=== PATIENT | female | born 1965 | race Caucasian/White ===

== ENCOUNTER → 2020-09-30 10:33 | Outpatient (BNVA) | payer OTHER, SELFPAY | PROVIDERS: PCP Family Medicine; Referring Provider Family Medicine; Visit Provider Physician Assistant | DX: E66.3 Overweight (principal); Z68.28 Body mass index [BMI] 28.0-28.9, adult | CPT/HCPCS: 99202 ==

== ENCOUNTER 2021-07-21 16:29 | Outpatient (REF) | payer OTHER, SELFPAY | END 2021-07-21 16:30 | disposition home or self-care (01) | LOC: HO.LNP 16:29 | PROVIDERS: Visit Provider Hospitalist | DX: Z20.822 Contact with and (suspected) exposure to COVID-19 (principal); J01.90 Acute sinusitis, unspecified | CPT/HCPCS: U0003; U0005 ==

== ENCOUNTER 2022-08-11 09:07 | Outpatient (REF) | payer SELFPAY ==
[2022-08-11 10:33] LABS: Free T4 (Free Thyroxine) 1.06 ng/dL (0.71-1.85); Thyroid Stimulating Hormone 1.75 uIU/mL (0.32-4.0)
[2022-08-13 06:47] LABS: Triiodothyronine T3 Total 77 ng/dL (76-181)
== END 2022-08-11 09:08 | disposition home or self-care (01) ==
LOC: HO.LAB 09:07
PROVIDERS: PCP Family Medicine; Visit Provider Family Medicine
DX: E03.9 Hypothyroidism, unspecified (principal)
CPT/HCPCS: 36415; 84439; 84443; 84480

== ENCOUNTER 2023-07-02 10:13 | Emergency (ER) | payer BC, SELFPAY ==
--- NOTE | ~2023-07-02 | CT_ITS ---
EXAMINATION: CT HEAD WITHOUT CONTRAST CLINICAL INFORMATION: Headache, nausea and vomiting. COMPARISON: None available. TECHNIQUE: Contiguous axial imaging was performed from the skull base to vertex without intravenous administration of contrast. Coronal and sagittal reformatted images were obtained. This CT examination was performed using dose optimization techniques as appropriate, variously including the following: *Automated exposure control *Adjustment of mA and/or kV according to patient size (this includes techniques or standardized protocols for targeted exams where dose is matched to indication/reason for exam; i.e. extremities or head) *Use of iterative reconstruction technique DLP: 557 mGy-cm FINDINGS: The cortical sulci are normal. The lateral ventricles are symmetrical. The third and fourth ventricles are in their normal midline position. The basilar and prepontine cisterns are unremarkable. There is no acute intra or extracerebral abnormality. There is no mass effect or midline shift. Sections through the bony calvarium are unremarkable. The paranasal sinuses show a small retention cyst versus inflammatory polyp at the base of the left maxillary sinus. The bony orbits and orbital contents are unremarkable. CT/CT head/brain wo IV con IMPRESSION: No acute intracranial pathology.
[2023-07-02 10:25] VITALS: BP 124/74; PULSE 71; RESP 18; TEMP 36.8; O2SAT 98; BMI 29.3
--- NOTE | 2023-07-02 11:27 | ED.HA ---
HPI - Headache General Chief Complaint: Headache Stated Complaint: Vomiting L Arm Tingling X 1 Month Time Seen by Provider: 07/02/23 11:08 Source: patient, RN notes reviewed and old records reviewed Mode of arrival: ambulatory History of Present Illness HPI Narrative: 58-year-old female with past medical history hypothyroid, HLD, presenting to the ED complaining of dull headache beginning this morning at 06:30AM with associated nausea and emesis x1 a few hours later. Denies headache being maximal at onset. Also reports acute on chronic intermittent pinching sensation to left upper arm x 1 mos. Denies known injury/trauma or fall. Denies taking anticoagulation. Denies vision change/loss, neck/back pain, weakness, paresthesias, CP/SOB MD elicited complaint: migraine Related Data Home Medications Medication Instructions Recorded Confirmed flu vac qs (4 yr up) CD 60 IM 09/13/ mcg (15 mcg x 4)/0.5 mL IM susp multivitamin 1 tab PO DAILY 09/30/20 09/30/20 Previous Rx's Medication Instructions Recorded prednisone 20 mg tablet 20 mg PO .COMPLEX #18 tabs 07/21/21 mupirocin 2 % topical ointment 1 appl topical BID 14 days #22 02/14/ grams Levoxyl 100 mcg tablet 100 mcg PO DAILY 90 days #90 tabs 03/21/23 (levothyroxine) Allergies Allergy/AdvReac Type Severity Reaction Status Date / Time levothyroxine sodium Allergy Severe RASH Verified 08/16/22 13:30 [LEVOTHYROXINE SODIUM] Penicillins [PENICILLINS] Allergy Severe HIVES, Rash Verified 08/16/22 13:30 any 'cillins' Allergy Unknown Rash Uncoded 09/13/20 14:16 Review of Systems Review of Systems: Constitutional: No Fever, No Chills, No Fatigue, No Malaise ENT/Mouth: No Ear Pain, No Swallowing Difficulty Eyes: No Eye Pain, No Swelling, No Redness, No Foreign Body, No Vision Changes Cardiovascular: No Chest Pain, No SOB, No Edema, No Palpitations Respiratory: No Cough, No Sputum, No Dyspnea Gastrointestinal: No Nausea, No Vomiting, No Diarrhea, No Constipation, No Abdominal pain Musculoskeletal: + joint pain, No Myalgias, No Joint Swelling Skin: No Skin Lesions, No rash Neuro: No Weakness, No Numbness, No Paresthesias, No Loss of Consciousness, No Dizziness, + Headache Yes all other systems are reviewed and are negative Constitutional: Constitutional: Reports as per HPI Neurologic: Denies Abnormal speech present [facility] Past Medical History Attestation statement: The following information was validated with the patient. Source: old records reviewed Medical History COVID-19 Hypothyroidism (acquired) Surgical History History of dilation and curettage History of ganglion cyst Family History Family History Father Alzheimer disease Mother Alzheimer disease Brother No problems noted. Sister No problems noted. Sister Migraine Son No problems noted. Social History Social History Housing: House Alcohol intake: never Patient Tobacco Use Status: Never used Tobacco e-Cigarette/Vaping Use: Never Used Second Hand Smoke Exposure: No Advance Directives: No service: No Current occupational exposures/hazards: No Cognitive needs: No Hearing needs: No Vision needs: No Physical Exam Vital Signs: Vital Signs: Last Vital Signs Temp 98.2 F 07/02/23 10:25 Pulse 71 07/02/23 10:25 Resp 18 07/02/23 10:25 BP 124/74 07/02/23 10:25 Pulse Ox 98 07/02/23 10:25 O2 Del Method Room Air 07/02/23 10:25 BMI result Body Mass Index 29.3 Const: General: cooperative, healthy appearing, no acute distress, alert and awake Orientation/consciousness: patient oriented x3 Limitations: no limitations HEENT: Head: Yes normal to inspection and Yes atraumatic Ears: hearing grossly normal bilaterally, external ears normal, TM's normal bilaterally and mastoids normal General nose exam: Normal external nose present Face and sinus: Yes normal facial exam Throat: Yes posterior oropharynx normal, Yes tonsils normal, Yes uvula midline, No peritonsillar mass, No uvula laterally displaced and No uvular edema Eyes: General: appearance normal, both eyes and all related structures Eyelids: Yes eyelids normal Sclerae: sclerae normal Corneas: corneas normal Pupils: Equal, round and reactive pupils present EOM: EOMs intact bilaterally Neck: Neck: Yes normal visual inspection, Yes full ROM, Yes no meningeal signs, Yes supple, No anterior neck swelling and No torticollis Resp: Effort & Inspection: normal respiratory effort and no respiratory distress Auscultation: clear to auscultation bilaterally Cardio: Rate: regular rate Heart sounds: S1 normal heart sound present and S2 normal heart sound present Peripheral pulses: Peripheral pulses 2+ throughout GI: Inspection: Yes normal to inspection Palpation (GI): Soft to palpation, nontender, no guarding and not rigid Back/Spine/Pelvis: Other: No midline cervical/thoracic/lumbar spinous tenderness/step-off or deformity Skin: Rashes: no rashes Wounds: no wounds Neuro: General: patient oriented x3, gait normal, tone normal, moves all extremities, no meningeal signs, no focal motor deficits and CN's II-XI intact bilaterally Cranial nerves: Yes CN's II-XII intact bilaterally, Yes Equal, round and reactive pupils present and Yes Bilaterally intact EOM present Cognition (Neuro): normal cognition Speech: No Abnormal speech present Gait exam (Neuro): Normal gait present Motor exam (neuro): 5/5 motor strength present throughout, Pronator motor function not present and no tremor noted Extrem: Other: Left upper extremity without noted deformity, no erythema/ecchymosis or rash. No edema. Neurovascularly intact. Full range of motion intact General: Yes normal to inspection Course Course Course Narrative: CT head/brain wo IV con IMPRESSION: No acute intracranial pathology. > results discussed, patient reports symptomatic improvement/headache resolution after p.o. Fioricet, offered prescription however patient declined, recommended close orthopedic and PCP follow-up Results discussed with patient including worrisome signs and symptoms and strict return precautions, and when to return to the emergency department. They verbalized understanding and feel safe for discharge at this time. Medications Administered Discontinued Medications Generic Name Dose Route Start Last Admin Trade Name Freq PRN Reason Stop Dose Admin Acetaminophen/Butalbital/Caffeine 1 tab 07/02/23 12:03 07/02/23 12:49 Butalb/Acetamin/Caff 50/325/40 Tablet PO 07/02/23 12:04 1 tab ONCE ONE Administration Medical Decision Making Medical Decision Making MDM Narrative: 58-year-old female with past medical history hypothyroid, HLD, presenting to the ED complaining of dull headache beginning this morning at 06:30AM with associated nausea and emesis a few hours later. On exam vital signs stable, NAD, nontoxic appearing, no focal neuro deficits, ambulating with steady gait, no appreciable left upper extremity deformity noted. Concern for complicated migraine headache. Lower suspicion for SAH however patient in 6 hour window, will obtain head CT. Unlikely CVA/TIA. Rule out atypical ACS although lower suspicion with chronicity and intermittent symptoms. Unlikely cervical radiculopathy/dissection. No evidence of infection Plan: EKG, head CT, p.o. Fioricet Please refer to course for remaining clinical decision making, interpretation of labs/imaging results, and discussions with consultants and/or family members. Differential Diagnosis Differential Diagnoses: The differential diagnosis associated with the presentation includes As above Admission/Observation Consideration of admission/observation: Escalation of care including admission/observation considered Independent Interpretation I performed an independent interpretation of an: CT Scan (Appears unremarkable) Radiology Impression Discussion of test interpretation with radiology: I have reviewed the radiologist's reading. Independent Historian Clinical information obtained from an independent historian. History obtained from or confirmed by: Other (Daughter) External Record Review External record reviewed: Inpatient record, Office record, Outpatient record, Prior outpatient labs, Prior outpatient radiology, Primary care record and Outside ED record Tests considered The following testing was considered but not selected: As above Prescription Management I considered prescription management with: Pain Medication Chronic Conditions Patient?s care impacted by: Other (HLD) Discharge Plan Discharge Clinical Impression: Headache, Arm pain Patient Disposition: Home, Self-Care Instructions: Acute Headache (DC), Arm Pain (ED) Additional Instructions: Your head CT is unremarkable Continue to take Tylenol and Motrin as needed Follow-up with her doctor If headache persists or worsens, you have persistent nausea/vomiting, weakness, vision loss return to the ED immediately You may follow-up with orthopedics pertaining to her arm pain Prescriptions: No Action levothyroxine [Levoxyl] 100 mcg tablet 100 mcg PO DAILY 90 Days Qty: 90 3RF Rx Instructions: no substitute, give LEVOXYL only please Flucelvax Quad [id number] 60 mcg (15 mcg x 4)/0.5 mL suspension IM prednisone 20 mg tablet 20 mg PO .COMPLEX Qty: 18 0RF Rx Instructions: 20 mg PO 3 p.o. daily for 3 days followed by 2 p.o. daily for 3 days followed by 1 p.o. daily for 3 days; mupirocin 2 % ointment 1 appl topical BID 14 Days Qty: 22 0RF multivitamin Tablet 1 tab PO DAILY Referrals: [facility] [place] [facility] [Provider Group] - 1 week Jass Longo MD [Primary Care Provider] - 5 days
--- NOTE | 2023-07-02 11:59 | ECG_ITS ---
Test Reason : lue pain Blood Pressure : / mmHG Vent. Rate : 055 BPM Atrial Rate : 055 BPM P-R Int : 130 ms QRS Dur : 096 ms QT Int : 412 ms P-R-T Axes : 041 -24 045 degrees QTc Int : 394 ms Sinus bradycardia with sinus arrhythmia Incomplete right bundle branch block Borderline ECG No previous ECGs available Referred By: Shelley Gasca Electronically Signed By:Festus Juárez
[2023-07-02] MEDS: Butalb/Acetamin/Caff 50/325/40 TABLET 1 TAB PO (12:49)
== END 2023-07-02 13:47 | disposition home or self-care (01) ==
PROVIDERS: Emergency Provider Emergency Medicine; PCP Family Medicine
DX: R51.9 Headache, unspecified (principal); M79.602 Pain in left arm; M79.601 Pain in right arm; R00.1 Bradycardia, unspecified; Z79.899 Other long term (current) drug therapy
CPT/HCPCS: 70450; 93005; 99284

== ENCOUNTER → 2023-07-02 11:59 | Outpatient (BNV) | payer BC, SELFPAY | PROVIDERS: Emergency Provider Emergency Medicine; PCP Family Medicine; Visit Provider Internal Medicine Cardiovascular Disease | DX: I49.9 Cardiac arrhythmia, unspecified (principal) | CPT/HCPCS: 93010 ==

== ENCOUNTER 2025-02-19 14:57 | Outpatient (AMB) | payer BC, SELFPAY ==
--- NOTE | 2025-02-19 14:59 | A.OFFPC_ITS ---
Vital Signs 02/19/25 15:04 Height 5 ft 4 in Weight 156 lb 8 oz BMI 26.9 BP 118/72 Blood Pressure Location Lt brachial Position Sitting Respiration 12 Pulse 85 Pulse Source Pulse Oximeter Temp 97.2 F Temp Source Oral Pulse Oximetry (%) 96 Oxygen Delivery Method Room Air Intake Visit Reasons: Physical - Dr. Vuong pt. - see comments Intake Note: annual physical Director Of Workforce Development Required: No Allergies levothyroxine sodium [LEVOTHYROXINE SODIUM] Allergy (Severe, Verified 02/19/25 15:20) RASH Penicillins [PENICILLINS] Allergy (Severe, Verified 02/19/25 15:20) HIVES, Rash any 'cillins' Allergy (Unknown, Uncoded 09/13/20 14:16) Rash Medication List - Last Reconciled 02/19/25 by THU Thrasher- Levoxyl (levothyroxine) 100 mcg PO DAILY 90 days NS multivitamin 1 tab PO DAILY Tobacco use date assessed: 02/19/25 Dental Screening Dental Screen Date: 02/19/25 Did you have a dental visit in the last 12 months?: Yes Did you have a dental problem in the last 6 months where you did not have access to dental care?: No Was dental information given to patient?: Patient has dentist HPI HPI Comments History of Present Illness Details 59 y/o f with HLD, GERD, hypothyroid, ob esity Social: 3 children, Health Maintenance: colon 2013, repeat 10 years referred today Tdap 2019, Flu admin today Mammo declined DEXA has never had done, ordered today Pap referred to [facility] Specialists: Optho Here today for complete physical exam and follow up chronic conditions. She was a patient of Dr. Duran and has not been seen in about 3 years. She was requesting MMR labs due to the current measles outbreak. She was hypothyroidism and is taking the L-thyroxine. She is overdue for labs History of hyperlipidemia not currently on a statin per choice. Does not like to take medications. Weight is stable. GERD is not currently on any medications report that she only has symptoms when she lies down after eating late at night. She does complain of trouble swallowing occasionally. This started 1 year ago. Happening about once per mo nth. Only affecting her ability to swallow things like bread. She was toenail fungus which was treated with oral terbinafine in the past however she did not complete the course this was around 2013 she wonders if there are any treatments. ROS: - Gastrointestinal: Reports periodic dys phagia, especially with solids. - Musculoskeletal: Denies joint or muscl e pain. - Cardiovascular: Denies any current jacinto st pain or shortness of breath. - Dermatological: Notes changes in nails possibly indicative of a fungal infection. Exam General: Well developed, well nourished, in no acute distress. Appears stated age. Head: Normocephalic, atraumatic. Eyes: Pupils are equal, round and reactive to light and accommodation. Conjunctivae are clear. Vision grossly normal. Ears: TMs clear AU, EACS WNL Nose: Patent, without discharge. Mouth: There are no ulcers or lesions noted. No inflammation, no post nasal drip, no plaques nor exudates. Neck: Supple, no adenopathy or thyromegaly. Lungs: Clear to auscultation bilaterally. No rales, rhonchi or wheeze noted. Good air flow in all [place]. Heart: Regular rate and rhythm. No murmurs, click, rubs or gallops are noted. Abdomen: Bowel sounds present in all quadrants. The abdomen is soft, nontender, with no masses or organomegaly noted. No hernias are noted. Musculoskeletal: Joints are nontender, without swelling, redness, or effusions. Range of motion is observed to be normal. Pulses: Peripheral pulses are equal and palpable bilaterally. Extremities: No clubbing, cyanosis nor edema is noted. Neurologic: Gait and station normal. Cranial Nerves 2-12 intact. Motor strength grossly symmetrical and intact. No sensory loss. Balance normal. Skin: No rashes, ulcers, or lesions noted. Turgor is good. Skin color is good. Hair and nails are without abnormalities. Insert onychomycosis bilat great toenails Psych: Normal eye contact, affect and mood appropriate, and normal interactions. Patient is alert and appropriate to context. Plan: Flu shot today Labs today. Refer to GI for colonoscopy and for consideration of EGD given dysphagia. Discuss treating GERD for a short period of time to see if this improves her symptoms however she declined as she does not like to take medications. Did include thyroid is the differential in the cause of her symptoms however on clinical exam and does not appear that the thyroid splinting a part in her swallowing difficulties. Of note she was taking a multivitamin which contains high levels of vitamin B12 and other B vitamins. If her B12 is elevated on labs we will encourage her to switch over to a regular multivitamin that does not include high doses of vitamin B. - Advised on lifestyle strategies possibly helping with onychomycosis like use of tea tree oil and vinegar soaks. Return to the office in 1 year for complete physical exam, sooner as needed Patient was informed and verbally consented to the use of an ambient scribe for clinic note documentation during this visit. An additional 30 minutes was spent addressing the problem(s) noted at todays visit. This includes time spent before the visit reviewing the chart, time spent during the visit, and time spent after the visit on documentation reviewing laboratory results, diagnostic imaging, medications, performing a medically necessary evaluation, counseling on diagnoses, care coordination, ordering appr opriate tests, ordering appropriate medications, review of tests performed by other providers, reporting test results with the patient, communication with other healthcare providers. [facility] Medical History COVID-19 Hypothyroidism (acquired) Surgical History History of colonoscopy (~2013) History of ganglion cyst History of dilation and curettage Family History (Updated 02/19/25 @ 15:00 by Almaz Snyder MA) Father Alzheimer disease Mother Alzheimer disease Brother No problems noted. Sister No problems noted. Sister Migraine Son No problems noted. Social History Housing: House Alcohol intake: never Patient Tobacco Use Status: Never used Tobacco e-Cigarette/Vaping Use: Never Used Second Hand Smoke Exposure: No service: No Current occupational exposures/hazards: No Cognitive needs: No Hearing needs: No Vision needs: No Questionnaire PHQ-9 Over the last 2 weeks, how often have you been bothered by any of the following problems? 1. Little interest or pleasure in doing things: not at all 2. Feeling down, depressed, or hopeless: not at all 3. Trouble falling or staying asleep, or sleeping too much: not at all 4. Feeling tired or having little energy: not at all 5. Poor appetite or overeating: not at all 6. Feeling bad about yourself - or that you are a failure or have let yourself or your family down: not at all 7. Trouble concentrating on things, such as reading the newspaper or watching television: not at all 8. Moving or speaking so slowly that other people could have noticed. Or the opposite - being so fidgety or restless that you have been moving around a lot more than usual: not at all 9. Thoughts that you would be better off or of hurting yourself in some way: not at all Total score: 0 Depression Screening Interpretation: Negative Depression Screening Done: Yes 44641 - PHQ-9 Billing: Yes Source: Developed by Drs. Parviz Feliz, Aviva Capone, Mahendra Garcia and colleagues, with an educational magi from [employer]. Thrive Questionnaire Date Thrive assessed: 02/19/25 I am a: Patient What is your living situation today?: I have a steady place to live Within the past 12 months, did the food you bought not last and you didn't have the money to get more?: Never true Within the past 12 months, did you worry whether your food would run out before you got money to buy more?: Never true Do you have trouble paying for medicines?: No Do you have trouble getting transportation to medical appointments?: No Do you have trouble paying your heating and electricity bill?: No Do you have trouble taking care of your child, family member or friend?: No Do you have trouble with day-to-day activities such as bathing, preparing meals, shopping, managing finances, etc.?: No Are you currently unemployed and looking for a job?: No Are you interested in more education?: No Please select the resources that you would like help with: None Currently or been in a relationship where the following occur: No concerns reported THRIVE Score: 0 AUDIT C Alcohol Use Questionnaire (AUDIT-C) 1. How often do you have a drink containing alcohol?: Never 3. How often do you have six or more drinks on one occasion?: Never Total Score: 0 Score Reviewed/Action Taken: Yes ELIOT-7 AMB Questionnaire ELIOT-7 Date ELIOT - 7 assessed: 02/19/25 Feeling nervous, anxious, or on edge: 0 = Not at all Not being able to stop or control worryin = Not at all Worrying too much about different things: 0 = Not at all Trouble relaxin = Not at all Being so restless that it is hard to sit still: 0 = Not at all Becoming easily annoyed or irritable: 0 = Not at all Feeling afraid as if something awful might happen: 0 = Not at all Total ELIOT-7 score (0-4 normal; 5-9 mild; 10-14 moderate; 15-21 severe): 0 Source: Developed by Drs. Parviz Feliz, Aviva Capone, Mahendra Garcia and colleagues, with an educational magi from [employer]. ELIOT-7 Assessment Billing ELIOT-7 Assessment Tool: ELIOT-7 Assessment 74019 Physical exam (Primary Care) Vital Signs: Last Vital Signs Temp 97.2 F 02/19/25 15:04 Pulse 85 02/19/25 15:04 Resp 12 02/19/25 15:04 BP 118/72 02/19/25 15:04 Pulse Ox 96 02/19/25 15:04 Oxygen Delivery Method Room Air 02/19/25 15:04 BMI result Body Mass Index 26.9 Tobacco/Smoking Status: Tobacco use Status Tobacco use date assessed 02/19/25 02/19/25 15:03 Patient Tobacco Use Status Never used Tobacco 02/19/25 15:03 e-Cigarette/Vaping Use Never Used 02/19/25 15:03 PHQ-9: PHQ-9 Score PHQ-9: Total score 0 02/19/25 15:30 Depression Screening Interpretation: Negative Thrive Assessment: Date of Thrive Assessment Date Thrive assessed 02/19/25 02/19/25 15:03 Currently or been in a relationship where the following occur: No concerns reported Office Procedures Flu Questionnaire Does the patient have a severe egg allergy?: No Does the patient have severe life threatening allergies?: No Does the patient have a fever or illness today?: No Has the patient ever had Guillain-[place] Syndrome?: No Has the patient ever had any past reaction to a flu shot?: No Immunizations Fluarix Triv 2001-4306 (PF) 45 mcg (15 mcg x 3)/0.5 mL IM syringe Performing Provider: IGLESIA Thrasher Performing Location: [facility] Administered by: Candelaria Pabon RN on 02/19/25 16:24 Dose Route Admin Location Dispensed Lot Number Expiration Date [facility] Machine Cloth Measurer 0.5 mL IM Right Deltoid 0.5 mL [id number] 05/24/25 30935-320-91 MADS VIS Given Date VIS Provided VIS Publication Date 02/19/25 Single Vaccine 21 Eligibility Eligibility Date Funding Source Not [facility] Eligible 02/19/25 Private Coding Level of Care Code Est Pt Level 4 (01511) Est Pt Prev Care 40-64y(24463) Diagnoses Encounter for general adult medical examination with abnormal findings Z00.01 Moderate mixed hyperlipidemia not requiring statin therapy E78.2 Hyperlipidemia type: moderate mixed hyperlipidemia not requiring statin therapy Hypothyroidism (acquired) E03.9 Immunity status testing Z01.84 Onychomycosis B35.1 Influenza vaccination administered at current visit Z23 Screening mammography declined Z53.20 Menopause Z78.0 Choking, initial encounter T17.308A Encounter type: initial encounter Additional Codes ELIOT-7 Assessment Billing - ELIOT-7 Assessment Tool: ELIOT-7 Assessment 79059 ([id number]) PHQ-9 - 59021 - PHQ-9 Billing: Yes ([id number]) Assessment & Plan Assessment & Plan (1) Encounter for general adult medical examination with abnormal findings: Code(s): Z00.01 - Encounter for general adult medical examination with abnormal findings (2) Hyperlipidemia: Code(s): E78.5 - Hyperlipidemia, unspecified Category: Medical Qualifiers: Hyperlipidemia type: moderate mixed hyperlipidemia not requiring statin therapy Qualified Code(s): E78.2 - Mixed hyperlipidemia (3) Hypothyroidism (acquired): Code(s): E03.9 - Hypothyroidism, unspecified Category: Medical (4) Immunity status testing: Code(s): Z01.84 - Encounter for antibody response examination Category: Medical (5) Onychomycosis: Code(s): B35.1 - Tinea unguium Category: Medical (6) Influenza vaccination administered at current visit: Code(s): Z23 - Encounter for immunization Category: Medical (7) Screening mammography declined: Code(s): Z53.20 - Procedure and treatment not carried out because of patient's decision for unspecified reasons Category: Medical (8) Menopause: Code(s): Z78.0 - Asymptomatic menopausal state Category: Medical (9) Choking: Code(s): T17.308A - Unspecified foreign body in larynx causing other injury, initial encounter Category: Medical Qualifiers: Encounter type: initial encounter Qualified Code(s): T17.308A - Unspecified foreign body in larynx causing other injury, initial encounter Plan . Orders: Orders Hemoglobin A1c Today E03.9 - Hypothyroidism, unspecified, E78.5 - Hyperlipidemia, unspecified, Z00.00 - Encounter for general adult medical examination without abnormal findings Lipid Panel Today E03.9 - Hypothyroidism, unspecified, E78.5 - Hyperlipidemia, unspecified, Z00.00 - Encounter for general adult medical examination without abnormal findings Microalbumin, Random (w Creat) Today E03.9 - Hypothyroidism, unspecified, E78.5 - Hyperlipidemia, unspecified, Z00.00 - Encounter for general adult medical examination without abnormal findings Vitamin D 25-OH Total Today E03.9 - Hypothyroidism, unspecified, E78.5 - Hyperlipidemia, unspecified, Z00.00 - Encounter for general adult medical examination without abnormal findings XR DEXA axial skeleton Today Z13.820 - Encounter for screening for osteoporosis, Z78.0 - Asymptomatic menopausal state Influenza 7511-2385 Immunization Today Z23 - Encounter for immunization Comprehensive Met. Panel Today E03.9 - Hypothyroidism, unspecified, E78.5 - Hyperlipidemia, unspecified, Z00.00 - Encounter for general adult medical examination without abnormal findings TSH reflex Free T4 Today E03.9 - Hypothyroidism, unspecified, E78.5 - Hyperlipidemia, unspecified, Z00.00 - Encounter for general adult medical examination without abnormal findings Vitamin B12 and Folate Today E03.9 - Hypothyroidism, unspecified, E78.5 - Hyperlipidemia, unspecified, Z00.00 - Encounter for general adult medical examination without abnormal findings MMR IgG Measles Mumps Rubella Today Z01.84 - Encounter for antibody response examination Referrals Gastroenterology Referral T17.308A - Unspecified foreign body in larynx causing other injury, initial encounter, Z12.11 - Encounter for screening for malignant neoplasm of colon RISK AND INSURANCE CONSULTANT Referral Z12.4 - Encounter for screening for malignant neoplasm of cervix Patient Instructions: - Get your blood work done today to check your thyroid and cholesterol. - Consider using tea tree oil and white vinegar for your nails at bedtime. - Follow up on getting your colonoscopy or decide if you?d like to use the at- home cologuard option this time. - Keep your appointment for the mammogram, Pap smear, and bone density test. - Consider the flu shot today and discuss the COVID-19 vaccine if interested. Health screenings for women You should visit your health care provider from time to time, even if you are healthy. The purpose of these visits is to: Screen for medical issues Assess your risk for future medical problems Encourage a healthy lifestyle Update vaccinations and other preventive care services Help you get to know your provider in case of an illness Information Even if you feel fine, you should still see your provider for regular checkups. These visits can help you avoid problems in the future. For example, the only way to find out if you have high blood pressure is to have it checked regularly. High blood sugar and high cholesterol levels also may not have any symptoms in the early stages. A simple blood test can check for these conditions. There are specific times when you should see your provider or receive specific health screenings. The [place] Preventive Services Task Force publishes a list of recommended screenings. Below are screening guidelines for women ages 18 to 39. BLOOD PRESSURE SCREENING Your blood pressure should be checked at least once every 3 to 5 years if: Your blood pressure is in the normal range (top number less than 120 mm Hg and bottom number less than 80 mm Hg) You don't have risk factors for high blood pressure Ask your provider if you need your blood pressure checked more often if: The top number is 120 to 129 mm Hg or the bottom number is 70 to 79 mm Hg You have diabetes, heart disease, kidney problems, are overweight, or have certain other health conditions You have a first-degree relative with high blood pressure You are Black You had high blood pressure during a If the top number is 130 mm Hg or greater or the bottom number is 80 mm Hg or greater, this is considered stage 1 hypertension. Schedule an appointment with your provider to learn how you can reduce your blood pressure. Watch for blood pressure screenings in your area. Ask your provider if you can stop in to have your blood pressure checked. BREAST CANCER SCREENING Experts do not agree about the benefits of breast self-exams in finding breast cancer or saving lives. Talk to your provider about what is best for you. A screening mammogram is not recommended for most women under age 40. Your provider may discuss and recommend mammograms, MRI scans, or ultrasounds if you have an increased risk for breast cancer, such as: A mother or sister who had breast cancer at a young age (most often starting screening earlier than the age the close relative was diagnosed) You carry a high-risk genetic marker CERVICAL CANCER SCREENING Cervical cancer screening should start at age 21 years unless your provider advises otherwise. After the first test: Women ages 21 through 29 should have a Pap test every 3 years. Exoprts do not agree on whether HPV testing is recommended for this age group. Women ages 30 through 65 should be screened with either a Pap test every 3 years or the HPV test every 5 years or both tests every 5 years (called cotesting ). Women who have been treated for precancer (cervical dysplasia) should continue to have Pap tests for 20 years after treatment or until age 65, whichever is longer. If you have had your uterus and cervix removed (total hysterectomy), and you have not been diagnosed with cervical cancer or precancer (high grade cervical neoplasia), you do not need cervical cancer screening. CHOLESTEROL SCREENING Cholesterol screening should begin at: Age 45 for women with no known risk factors for coronary heart disease Age 20 for women with known risk factors for coronary heart disease Repeat cholesterol screening should take place: Every 5 years for women with normal cholesterol levels More often if changes occur in lifestyle (including weight gain and diet) More often if you have diabetes, heart disease, kidney problems, or certain other conditions DIABETES SCREENING You should be screened for diabetes starting at age 35 and then repeated every 3 years if you have no risk factors for diabetes. Screening may need to start earlier and be repeated more often if you have other risk factors for diabetes, such as: You have a first degree relative with diabetes. You are overweight or have obesity. You have high blood pressure, prediabetes, or a history of heart disease. Screening for diabetes should be done if you are planning to become and you are overweight and have other risk factors such as high blood pressure. DENTAL EXAM Go to the dentist once or twice every year for an exam and cleaning. Your dentist will evaluate if you need more frequent visits. EYE EXAM Have an eye exam every 5 to 10 years before age 40. If you have vision problems, have an eye exam every 2 years or more often if recommended by your provider. You should have an eye exam that includes an examination of your retina (back of your eye) at least every year if you have diabetes. IMMUNIZATIONS Commonly needed vaccines include: Flu shot: get one every year. COVID-19 vaccine: ask your provider what is best for you. Tetanus-diphtheria and acellular pertussis (Tdap) vaccine: have one at or after age 19 as one of your tetanus-diphtheria vaccines if you did not receive it as an adolescent. Tetanus-diphtheria: have a booster (or Tdap) every 10 years. Varicella vaccine: receive 2 doses if you never had chickenpox or the varicella vaccine. Hepatitis B vaccine: receive 2, 3, or 4 doses, depending on your exact circumstances. Measles, mumps, and rubella (MMR) vaccine: receive 1 to 2 doses if you are not already immune to MMR. Your provider can tell you if you are immune. Ask your provider about the human papillomavirus (HPV) vaccine if: You have not received the HPV vaccine in the past You have not completed the full vaccine series (you should catch up on this shot) Ask your provider if you should receive other immunizations if you have certain health problems that increase your risk for some diseases such as pneumonia. INFECTIOUS DISEASE SCREENING Women who are sexually active should be screened for chlamydia and gonorrhea up until age 25. Women 25 years and older should be screened for chlamydia and gonorrhea if at high risk. Screening for hepatitis C: All adults ages 18 to 79 should get a one-time test for hepatitis C. people should be screened at every . Screening for human immunodeficiency virus (HIV): All people ages 15 to 65 should get a one-time test for HIV. Depending on your lifestyle and medical history, you may also need to be screened for infections such as syphilis and HIV, as well as other infections. PHYSICAL EXAM All adults should visit their provider from time to time, even if they are healthy. The purpose of these visits is to: Screen for disease Assess your risk of future medical problems Encourage a healthy lifestyle Update your vaccinations and other preventive care services Maintain a relationship with a provider in case of an illness Your height, weight, and BMI should be checked at every exam. During your exam, your provider may ask you about: Depression and anxiety Diet and exercise Alcohol and tobacco use Safety issues, such as using seat belts, smoke detectors, and intimate partner violence Your medicines and risk for interactions SKIN SELF-EXAM Your provider may check your skin for signs of skin cancer, especially if you're at high risk, such as if you: Have had skin cancer before Have close relatives with skin cancer Have a weakened immune system OTHER SCREENING Talk with your provider about colon cancer screening if you have a strong family history of colon cancer or polyps, or if you have had inflammatory bowel disease or polyps yourself. Routine bone density screening of women under 40 is not recommended.
[2025-02-19 15:04] VITALS: BP 118/72; PULSE 85; RESP 12; TEMP 36.2; O2SAT 96; BMI 26.9
== END 2025-02-19 15:59 | disposition home or self-care (01) ==
LOC: HO.HMCFM 14:58
PROVIDERS: PCP Family Medicine; Visit Provider Nurse Practitioner Family
DX: Z00.01 Encounter for general adult medical examination with abnormal findings (principal); E78.2 Mixed hyperlipidemia; E03.9 Hypothyroidism, unspecified; Z01.84 Encounter for antibody response examination; B35.1 Tinea unguium; Z23 Encounter for immunization; Z53.20 Procedure and treatment not carried out because of patient's decision for unspecified reasons; Z78.0 Asymptomatic menopausal state; T17.308A Unspecified foreign body in larynx causing other injury, initial encounter

== ENCOUNTER → 2025-02-19 14:57 | Outpatient (BNVA) | payer BC, SELFPAY | PROVIDERS: PCP Family Medicine; Visit Provider Nurse Practitioner Family ==

== ENCOUNTER 2025-02-19 15:45 | Outpatient (REF) | payer BC, SELFPAY ==
[2025-02-19 18:11] LABS: Estimated Average Glucose 100 mg/dL; Hemoglobin A1C 122.7067 umol/L; Hemoglobin A1c % 5.1 % (<6.0)
[2025-02-19 18:36] LABS: Creatinine Urine 100.34 mg/dL; Microalbum/Creatinine Ratio Ur 9.9 ug/mg cr (<30)
[2025-02-19 18:46] LABS: Alanine Aminotransferase 24 U/L (0-31); Albumin Level 4.1 g/dL (3.5-5.0); Alkaline Phosphatase 90 U/L (39-117); Anion Gap 10 (12-20); Aspartate Amino Transferase 24 U/L (5-31); Bilirubin Total 0.6 mg/dL (0.0-1.0); Blood Urea Nitrogen 17 mg/dL (9-16); Calcium 9.1 mg/dL (8.4-10.2); Carbon Dioxide 25 mmol/L (22-29); Chloride 109 mmol/L (96-108); Cholesterol 238 mg/dL (<200); Estimated Glomerular Filt Rate > 60; Glucose Random 103 mg/dL (60-115); HDL Cholesterol 45 mg/dL (>40); LDL Cholesterol Calculated 133 mg/dL (<100); Potassium 3.8 mmol/L (3.3-5.1); Sodium 140 mmol/L (135-145); Total Protein 7.6 g/dL (6.5-8.0); Triglycerides 301 mg/dL (<150)
[2025-02-19 19:00] LABS: TSH reflex Free T4 0.27 uIU/mL (0.32-4.0); Vitamin D 25-OH Total 48.2 ng/mL (>30)
[2025-02-19 19:10] LABS: Folate 18.1 ng/mL (> or = 4.0); Vitamin B12 875 pg/mL (200-900)
[2025-02-19 19:35] LABS: Free T4 (Free Thyroxine) 1.29 ng/dL (0.71-1.85)
[2025-02-23 22:57] LABS: Rubella IgG Antibody 2.69 Index
== END 2025-02-19 15:46 | disposition home or self-care (01) ==
LOC: HO.WFDLDS 15:45
PROVIDERS: Visit Provider Nurse Practitioner Family
DX: Z00.01 Encounter for general adult medical examination with abnormal findings (principal); Z23 Encounter for immunization; E78.2 Mixed hyperlipidemia; E03.9 Hypothyroidism, unspecified; B35.1 Tinea unguium; T17.308A Unspecified foreign body in larynx causing other injury, initial encounter; Z78.0 Asymptomatic menopausal state; Z13.1 Encounter for screening for diabetes mellitus
CPT/HCPCS: 36415; 80053; 80061; 82043; 82306; 82570; 82607; 82746; 83036; 84439; 84443; 86735; 86762; 86765; 90471; 90656; 96127

== ENCOUNTER 2025-04-23 09:27 | Outpatient (AMB) | payer BC, SELFPAY ==
--- NOTE | 2025-04-23 09:38 | A.OFFVIS_ITS ---
Vital Signs 04/23/25 09:40 Height 5 ft 4 in Weight 155 lb BMI 26.6 BP 117/61 Blood Pressure Location Lt brachial Position Sitting Pulse 75 Pulse Oximetry (%) 96 Oxygen Delivery Method Room Air Intake Visit Reasons: [place] screening and difficulty swallowing Intake Note: Patient new consult for pre [place] screening and difficulty swallowing/Last Colonoscopy was with Dr. Sood 10 yrs ago- normal. Patient cc: swallowing difficulty with solid food on and off, denies any other GI issues. 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 Referred by PCP for further evaluation of dysphasia and pre colonoscopy screening. Patient reports experiencing difficulty swallowing for a few years, occurring intermittently. She describes a sensation as if something is stuck in her throat, primarily when eating solids, not liquids. Episodes occur occasionally, without choking, but she often drinks water to help swallow. Patient denies regurgitation, nausea, vomiting, and reports that her appetite is unaffected. She occasionally experiences heartburn when eating late or spicy food. Reports last colonoscopy 2013 here at [facility] and normal. Shares daily, regular BMs without constipation, straining, or diarrhea. Denies blood in stool. Notes prior mild constipation resolved after removing dairy from diet during a period of vegan eating. Patient denies: fever/chills, unintentional wt loss, ab pain or melena/hematochezia. Social History - Diet: Transitioned from vegan to a more inclusive diet; currently consumes fish, chicken, and avoids dairy. - Alcohol/Tobacco/Drug Use: No alcohol, tobacco, or drug use. 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 [facility] Medical History (Updated 04/23/25 @ 10:49 by Brie Gutierrez CNP) Dysphagia Colon cancer screening COVID-19 Hypothyroidism (acquired) Surgical History History of colonoscopy (~2013) History of ganglion cyst History of dilation and curettage Family History Father Alzheimer disease Mother Alzheimer disease Brother No problems noted. Sister No problems noted. Sister Migraine Son No problems noted. Social History Housing: House Alcohol intake: never Patient Tobacco Use Status: Never used Tobacco e-Cigarette/Vaping Use: Never Used Second Hand Smoke Exposure: No service: No Current occupational exposures/hazards: No Cognitive needs: No Hearing needs: No Vision needs: No Review of Systems Const Reports as per HPI ENT Reports as per HPI Card Reports as per HPI Resp Reports as per HPI GI Reports as per HPI Reports as per HPI Physical Exam Vital Signs: Last Vital Signs Pulse 75 04/23/25 09:40 BP 117/61 04/23/25 09:40 Pulse Ox 96 04/23/25 09:40 Oxygen Delivery Method Room Air 04/23/25 09:40 BMI result Body Mass Index 26.6 Const General: healthy appearing, no acute distress and well developed Nutritional Appearance: well nourished Orientation/consciousness: patient oriented x3 HEENT Head: Yes normal to inspection, Yes normocephalic and Yes atraumatic Face and sinus: Yes normal facial exam Eyes General: appearance normal, both eyes and all related structures Neck Neck: Yes normal visual inspection Resp Effort & Inspection: normal respiratory effort, able to speak in complete sentences, no tracheal deviation and symmetric chest movement Auscultation: clear to auscultation bilaterally Cardio Jugular venous distension: no JVD Rate: regular rate Rhythm: regular rhythm Heart sounds: S1 normal heart sound present, S2 normal heart sound present, no gallops and no murmurs GI Inspection: Yes normal to inspection and No distended Palpation (GI): Soft to palpation, not firm, nontender and No hepatosplenomegaly present Auscultation: normal bowel sounds Neuro General: patient oriented x3 Gait exam (Neuro): Normal gait present Psych Appearance: grossly normal Mental Status: mental status grossly normal Speech and movement: Normal speech and movement present Affect: normal affect Attitude: cooperative Thought process: Normal thought process present Thought content: Normal thought content present Insight: Good insight present (Psych) Judgement: Good judgement present (Psych) Assessment & Plan Assessment & Plan (1) Colon cancer screening: Comment: 03/11/2014 colonoscopy (Dr. Sood)- complete with excellent prep. Normal exam. Code(s): Z12.11 - Encounter for screening for malignant neoplasm of colon Category: Medical Plan: Due for 10 year screening. Diagnostic Tests: Prescriptions for laxative tablets and PEG sent to pharmacy; instructions for Gatorade purchase and clear liquid diet given. Patient educated on procedure preparation, including avoiding certain foods and ensuring clear liquid intake. Advised on necessity for ride post-procedure due to sedation. (2) Hyperlipidemia: Code(s): E78.5 - Hyperlipidemia, unspecified Category: Medical Qualifiers: Hyperlipidemia type: moderate mixed hyperlipidemia not requiring statin therapy Qualified Code(s): E78.2 - Mixed hyperlipidemia Plan: Recent labs show elevated total chol and TG; prior improvement with vegan diet; currently managed with diet/exercise Lifestyle Modifications: Emphasize low-fat, high-fiber, whole foods; use healthy fats (avocado, olive oil); minimize processed/fatty foods; consider reducing dairy/eggs if lipids remain elevated Follow-Up: At next routine visit with PCP (3) Dysphagia: Code(s): R13.10 - Dysphagia, unspecified Category: Medical Qualifiers: Dysphagia type: unspecified Qualified Code(s): R13.10 - Dysphagia, unspecified Plan: Intermittent solid food dysphagia, no alarm sx, no wt loss, no regurgitation, no ca hx Additional Tests: Order barium swallow; schedule EGD (upper endoscopy) for further eval; colonoscopy due (last 2013) Lifestyle Modifications: Continue current diet; avoid late meals/spicy foods to minimize heartburn Plan follow up after procedures or sooner as needed. Time: I spent a total of 45 minutes on the date of encounter which includes: Preparing to see the patient (reviewed previous documentation, test results and medical history) Performing a medically appropriate exam and/or evaluation Ordering medications, tests, and procedures Documenting clinical information in the health record Orders: Orders FL barium swallow Today R13.10 - Dysphagia, unspecified Medications: New peg 3350-electrolytes 236-22.74-6.74 -5.86 gram until fecal effluent is clear 240 mL PO Q10M 4,000 mL 0RF bisacodyl Take four tablets once for 1 day per colonoscopy instructions 5 mg PO ONCE 1 day 4 tabs 0RF Coding Level of Care Code New Pt New Pt Level 5 (46249) Patient Type New Diagnoses Colon cancer screening Z12.11 Moderate mixed hyperlipidemia not requiring statin therapy E78.2 Hyperlipidemia type: moderate mixed hyperlipidemia not requiring statin therapy Dysphagia, unspecified type R13.10 Dysphagia type: unspecified
[2025-04-23 09:40] VITALS: BP 117/61; PULSE 75; O2SAT 96; BMI 26.6
== END 2025-04-23 10:28 | disposition home or self-care (01) ==
LOC: HO.HGI 09:28
PROVIDERS: PCP Family Medicine; Visit Provider Nurse Practitioner Family
DX: Z01.818 Encounter for other preprocedural examination (principal); Z12.11 Encounter for screening for malignant neoplasm of colon; E78.2 Mixed hyperlipidemia; R13.10 Dysphagia, unspecified
CPT/HCPCS: S0285

== ENCOUNTER 2025-05-18 12:50 | Outpatient (REF) | payer BC, SELFPAY ==
--- NOTE | ~2025-05-18 | MM_ITS ---
EXAMINATION: DXA BONE DENSITY AXIAL HISTORY: Z13.820Encounter for screening for osteoporosis/Z78.0 TECHNIQUE: Kisstixx Dual energy absorptiometry (DEXA) of the lumbar spine, total left hip, and femoral neck was performed. COMPARISON: There are no prior studies for comparison. FINDINGS: The bone mineral density of the lumbar spine is 0.742, corresponding to a T-score of -3.8, and a Z-score of -2.6. This is indicative of osteoporosis. The bone mineral density of the left total hip is 0.817, corresponding to a T-score of -1.5, and a Z-score of -0.6. This is indicative of osteopenia. The bone mineral density of the left femoral neck is 0.756, corresponding to a T-score of -2.0, and a Z-score of -0.8. This is indicative of osteopenia. FRACTURE RISK: The FRAX index suggests a risk of major osteoporotic fracture of 10.2%, and of hip fracture 1.4%. MM/XR DEXA axial skeleton IMPRESSION: Based on bone mineral density, and according to World Health Organization (WHO) criteria, the diagnosis is consistent with osteoporosis. All bone density values are in grams per centimeter squared (g/cm2). Statistically, 68% of repeat scans fall within 1 SD (+/- 0.010 g/cm2 for AP spine L1-L4) and 1 SD (+/- 0.012 g/cm2 for femur total) FRAX is a trademark of the [employer] [place] for Metabolic Bone Disease, a World Health Organization (WHO) Collaborating Center. Electronically signed by: Parviz Lennon MD 05/18/2025 01:30 PM EDT
--- OUTSIDE RECORDS SUMMARY | 2025-05-18 14:24 | XMS_ITS | Patient Health Record ---
[facility] Address [address] [place] [address] Care Team Providers Care Grain Loader Name Role Phone Bon Natarajan MD Primary Care Provider Unavailabl e Black, Reanna Unavailable [phone] Allergies Allergen (clinical drug ingredient) Drug/Non Drug Allergy documented on EMR Reaction Allergy Type Onset Date Status amoxicillin Amoxicillin Unknown Drug Allergy Act yudy Penicillin Hives Drug Allergy Active Reason For Referral No Information Medications Medication SIG (Take, Route, Fr equency, Duration) Notes Start Date End Date Status Lamisil 250 250 MG 1 Tab Oral Daily for 30 days Not-Taking Synthroid 88mcg Not- Taking Lamisil 250 250 MG 1 Tab Oral Daily for 90 014 Not-Taking Levoxyl 88 MCG 1 tablet Orally Once a day Active Problems Problem Type SNOMED Code ICD Code Onset Dates Problem Status W/U Status Risk Notes Problem Onychomycosis (967065144) Onychomycosis (110.1) Active confirmed Problem Pain in limb (37849057) Pain in Limb (729.5) Active confirmed Problem Hammer toe (074609693) Hammer toe (735.4) Active confirmed Plan Of Treatment Pending Test Test Name Order Date *Liver Function Test (LFT) 01/14/2014 [id number] NAIL, 6 OR MORE 03/17/2014 [id number] NAIL, 6 OR MORE 01/14/2014 [id number] Plate 03/17/2014 Insurance Providers Payer Name Payer Address Payer Phone Subscriber Number Group Number Insured Name Patient Relationship to Insured Coverage Start Date Coverage End Date [employer] [address] [place] [address] [id number] Oct, Self - patient is the insured Medical (General) History Medical History History ICD Code Hypothyroidism Onychomycosis Chicken pox Surgical History Surgery Date(Month/Year) colonoscopy
== END 2025-05-18 12:51 | disposition home or self-care (01) ==
LOC: HO.MAMMO 12:50
PROVIDERS: PCP Nurse Practitioner Family; Visit Provider Nurse Practitioner Family
DX: Z13.820 Encounter for screening for osteoporosis (principal); Z78.0 Asymptomatic menopausal state
CPT/HCPCS: 77080

== ENCOUNTER → 2025-05-18 13:00 | Outpatient (BNV) | payer BC, SELFPAY | PROVIDERS: PCP Nurse Practitioner Family; Visit Provider Radiology Diagnostic Radiology | DX: E28.39 Other primary ovarian failure (principal) | CPT/HCPCS: 77080 ==

== ENCOUNTER 2025-05-19 13:41 | Outpatient (AMB) | payer BC, SELFPAY ==
--- NOTE | 2025-05-19 14:01 | A.OFFPC_ITS ---
Intake Visit Reasons: to review bone density results and tx plan Intake Note: Telehealth review bone density and tx plan Configuration Release Manager Required: No Allergies levothyroxine sodium (LEVOTHYROXINE SODIUM) Allergy (Severe, Verified 05/19/25 14:55) RASH Penicillins (PENICILLINS) Allergy (Severe, Verified 05/19/25 14:55) HIVES, Rash any 'cillins' Allergy (Unknown, Uncoded 05/19/25 14:02) Rash Medication List - Last Reconciled 05/19/25 by THU Thrasher-BC bisacodyl 5 mg PO ONCE 1 day Levoxyl (levothyroxine) 75 mcg PO DAILY 90 days NS multivitamin 1 tab PO DAILY peg 3350-electrolytes 236-22.74-6.74 -5.86 gram 240 mL PO Q10M Tobacco use date assessed: 05/19/25 Dental Screening Dental Screen Date: 05/19/25 Did you have a dental visit in the last 12 months?: Yes Did you have a dental problem in the last 6 months where you did not have access to dental care?: No Was dental information given to patient?: Patient has dentist HPI HPI Comments History of Present Illness Details 60 y/o f with HLD, GERD, hypothyroid, ob esity Social: 3 children, Health Maintenance: colon 2013, repeat 10 years referred today Tdap 2019 Mammo declined DEXA 04/2025 Pap referred to [facility] Specialists: Optho History of Present Illness - The patient is a 60-year-old female pr esenting with osteoporosis. - Recent diagnosis via bone density - Hypercholesterolemia with a vegan diet adopted since 2019. - Utilizes women's multivitamin with aden cium and vitamin D. - Concerns about bone health due to past thyroid disease. - No known family history of osteoporosi s, thyroid disease may contribute. - Expresses interest in treatment option s with an rn hyperbaric. 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 - Inquiries about colonoscopy and Pap sm ear scheduling. Review of Systems - Musculoskeletal: Reports osteoporosis diagnosed by bone density scan. - Endocrine: Reports Denis's thyroid itis; denies family history. - Gastrointestinal: Concern regarding sc heduling of colonoscopy. - Nutritional: Currently on a vegan diet , taking a multivitamin. - General: Denies family history of oste oporosis, thyroid issues discussed. Assessment and Plan 1. Osteoporosis - Calcium and vitamin D supplementation necessary. - Referral to rn hyperbaric for advanc ed treatments. 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 Hypercholesterolemia - Vegan diet emphasized; implications on osteoporosis discussed. 4. Preventive Health Maintenance - Multivitamin use for bone health confi rmed. - Scheduling of colonoscopy and Pap smea r reviewed. Telehealth Attestation This consultation was conducted via telehealth with the patient, Candelaria, confirming her understanding of the discussed medical issues and treatment plans. The patient has been explained that this is an interactive (audio/video) telehealth encounter and what that consists of. The patient understands and wishes to proceed. Teach The People platform was used. Total time spent caring for the patient today was 32 minutes. This includes time spent before the visit reviewing the chart, time spent during the visit, and time spent after the visit on documentation, reviewing laboratory results, diagnostic imaging, medications, performing a medically necessary evaluation, counseling on diagnoses, care coordination, ordering appropriate tests, ordering appropriate medications, review of tests performed by other providers, reporting test results with the patient, communication with other healthcare providers. [facility] Medical History (Updated 05/19/25 @ 15:12 by Chantale Dwyer, [facility]) Colon cancer screening COVID-19 Dysphagia Hypothyroidism (acquired) Surgical History History of colonoscopy (~2013) History of dilation and curettage History of ganglion cyst Family History Father Alzheimer disease Mother Alzheimer disease Brother No problems noted. Sister No problems noted. Sister Migraine Son No problems noted. Social History Housing: House Alcohol intake: never Patient Tobacco Use Status: Never used Tobacco e-Cigarette/Vaping Use: Never Used Second Hand Smoke Exposure: No service: No Current occupational exposures/hazards: No Cognitive needs: No Hearing needs: No Vision needs: No Questionnaire Thrive Questionnaire Date Thrive assessed: 02/19/25 ELIOT-7 AMB Questionnaire ELIOT-7 Date ELIOT - 7 assessed: 02/19/25 Source: Developed by Drs. Parviz Feliz, Aviva Capone, Mahendra Garcia and colleagues, with an educational magi from [email or web address]. Physical exam (Primary Care) Tobacco/Smoking Status: Tobacco use Status Tobacco use date assessed 05/19/25 05/19/25 14:02 Patient Tobacco Use Status Never used Tobacco 05/19/25 14:02 e-Cigarette/Vaping Use Never Used 05/19/25 14:02 Thrive Assessment: Date of Thrive Assessment Date Thrive assessed 02/19/25 05/19/25 14:02 Telehealth Telehealth Telehealth Platform: Teach The People Location of provider rendering services: practice address Location of patient: address on file Patient Identification confirmed using: Name, : Yes Telehealth method: voice only Patient verbally consented to treatment: Yes Patient verbally consented to billing insurance company: Yes Patient informed of any privacy concerns related to visit: Yes Minutes spent on Phone/Video with Pt.: 20 Results Reviewed Results Reviewed: DEXA 04/2025 MM/XR DEXA axial skeleton IMPRESSION: Based on bone mineral density, and according to World Health Organization (WHO) criteria, the diagnosis is consistent with osteoporosis Coding Level of Care Code Tele Est Pt Level 4 (58135) Complex EM visit Add On G2211 Diagnoses Other osteoporosis without current pathological fracture M81.8 Osteoporosis type: other Presence of current pathological fracture: without current pathological fracture Choking, initial encounter T17.308A Encounter type: initial encounter Heartburn R12 Dysphagia, unspecified type R13.10 Dysphagia type: unspecified Colon cancer screening Z12.11 Assessment & Plan Assessment & Plan (1) Osteoporosis: Onset Date: ~05/18/25 Comment: refer to dr clayton, as she saw him in the past eval and tx Code(s): M81.0 - Age-related osteoporosis without current pathological fracture Category: Medical Qualifiers: Osteoporosis type: other Presence of current pathological fracture: without current pathological fracture Qualified Code(s): M81.8 - Other osteoporosis without current pathological fracture (2) Choking: Code(s): T17.308A - Unspecified foreign body in larynx causing other injury, initial encounter Category: Medical Qualifiers: Encounter type: initial encounter Qualified Code(s): T17.308A - Unspecified foreign body in larynx causing other injury, initial encounter (3) Heartburn: Code(s): R12 - Heartburn Category: Medical (4) Dysphagia: Code(s): R13.10 - Dysphagia, unspecified Category: Medical Qualifiers: Dysphagia type: unspecified Qualified Code(s): R13.10 - Dysphagia, unspecified (5) Colon cancer screening: Comment: 03/11/2014 colonoscopy (Dr. Sood)- complete with excellent prep. Normal exam. Code(s): Z12.11 - Encounter for screening for malignant neoplasm of colon Category: Medical Plan . Orders: Referrals Endocrinology Referral M81.8 - Other osteoporosis without current pathological fracture Patient Instructions: What is osteoporosis? This is a disease that makes bones weak. People with osteoporosis can break their bones too easily. For example, people with osteoporosis sometimes break a bone after falling down at home. Breaking a bone can be serious, especially if the bone is in the hip. People who break a hip sometimes lose the ability to walk on their own. Many of them need care in a intermediate. That's why it is so important to avoid breaking a bone in the first place. What is osteopenia? This is another word for low bone mineral density. Doctors also call this low bone mass. People with low bone mass generally have a lower risk of breaking a bone than people with osteoporosis. But their bone mineral density is below normal. How do I know if I have osteoporosis or low bone mass? Osteoporosis does not cause symptoms until you break a bone. But your doctor or nurse can have you tested for it. The best test is a bone mineral density test called the DXA test. It is a special kind of X-ray. Experts recommend DXA testing for females older than 65. That is because people in this group have the highest risk of osteoporosis. Still, other people should sometimes be tested, too. Ask your doctor or nurse if you should be tested. Some people learn they have osteoporosis because they break a bone during a fall or a mild impact. This is called a fragility fracture, because people with healthy bones should not break a bone that easily. People who have fragility fractures are at high risk of having other bones break. How do I keep my bones as healthy as possible? You should: ?Eat foods with a lot of calcium, such as milk, yogurt, and green leafy vegetables Foods and drinks with calcium Food Calcium in milligrams Milk (skim, 2%, or whole; 8 oz [240 mL]) 300 Yogurt (6 oz [168 g]) 250 [place] juice (with calcium; 8 oz [240 mL]) 300 Tofu with calcium (0.5 cup [113 g]) 435 Cheese (1 oz [28 g]) 195 to 335 (hard cheese = higher calcium) Cottage cheese (0.5 cup [113 g]) 130 Ice cream or frozen yogurt (0.5 cup [113 g]) 100 Fortified non-dairy milks (soy, oat, almond; 8 oz [240 mL]) 300 to 450 Beans (0.5 cup cooked [113 g]) 60 to 80 Dark, leafy green vegetables (0.5 cup cooked [113 g]) 50 to 135 Almonds (24 whole) 70 [place] (1 medium) 60 ?Eat foods with a lot of vitamin D, such as milk that has vitamin D added, and fish from the ocean. ?Take calcium and vitamin D pills (if you do not get enough from the food you eat). ?Be active for at least 30 minutes, most days of the week: ?Even gentle forms of exercise, like walking, can help. The most important thing is to choose activities you enjoy. ?Try to do exercises that increase strength and balance 2 to 3 days a week. These types of exercises can help lower your risk of falling. ?Quit smoking, if you smoke. Your doctor or nurse can help. ?Limit alcohol to 1 to 2 drinks a day at most. Your doctor might also suggest limiting caffeine. If you have low bone mass but not osteoporosis, making these changes is often the only treatment you need. How else can I avoid fractures? It sounds simple, but you can prevent a lot of fractures by reducing the chances of a fall. To do that: ?Make sure all your rugs have a no-slip backing to keep them in place. ?Tuck away any electrical cords, so they are not in your way. ?Light all walkways well. ?Watch out for slippery floors or other slick surfaces (such as wet pavement). ?Wear sturdy, comfortable shoes with rubber soles. ?Have your eyes checked. ?Ask your doctor or nurse to check whether any of your medicines might make you dizzy or increase your risk of falling. Can osteoporosis be treated? Yes, there are a few medicines to treat osteoporosis. These medicines can reduce the chances you will break a bone. Doctors and nurses usually suggest trying medicines called bisphosphonates first. If these do not do enough or if they cause side effects that bother you, you can try other medicines. In some cases, doctors also recommend medicine for people with osteopenia (low bone mass). But this depends on how likely the person is to break a bone. Your doctor can talk with you about whether medicine is an option. How can I tell if the treatment is working? Doctors and nurses often order DXA tests to check if osteoporosis medicines are working. These are the same tests they use to find osteoporosis in the first place. Sometimes, a blood or urine test is also needed. When should I call the doctor? Call your doctor or nurse for advice if you: ?Have osteoporosis and fall or get injured ?Think you might have fractured a bone ?Have new back pain ?Fall or lose your balance frequently
--- OUTSIDE RECORDS SUMMARY | 2025-05-19 16:10 | XMS_ITS | Patient Health Record ---
[facility] Address [address] [place] [address] Care Team Providers Care Word Processing Specialist Name Role Phone Bon Natarajan MD Primary Care Provider Unavailabl e Black, Reanna Unavailable [phone] Allergies Allergen (clinical drug ingredient) Drug/Non Drug [...] Status W/U Status Risk Notes Problem Onychomycosis (473510948) Onychomycosis (110.1) Active confirmed Problem Pain in Limb (729.5) Active confirmed Problem Hammer toe (469160952) Hammer toe (735.4) Active confirmed Plan Of Treatment Pending Test Test Name Order Date *Liver Function Test (LFT) 01/14/2014 [id number] NAIL, 6 OR MORE 03/17/2014 [id number] NAIL, 6 OR MORE 01/14/2014 [id number] Plate 03/17/2014 Insurance Providers Payer Name Payer Address Payer Phone Subscriber Number Group Number Insured Name Patient Relationship to Insured Coverage Start Date Coverage End Date [employer] Others [address] [place] [address] [id number] Oct, Self - patient is the insured Medical (General) History Medical History History ICD Code Hypothyroidism Onychomycosis Chicken pox Surgical History Surgery Date(Month/Year) colonoscopy
== END 2025-05-19 15:17 | disposition home or self-care (01) ==
LOC: HO.HMCFM 13:41
PROVIDERS: PCP Nurse Practitioner Family; Visit Provider Nurse Practitioner Family
DX: R12 Heartburn (principal); M81.8 Other osteoporosis without current pathological fracture; T17.308A Unspecified foreign body in larynx causing other injury, initial encounter; R13.10 Dysphagia, unspecified; Z12.11 Encounter for screening for malignant neoplasm of colon

== ENCOUNTER → 2025-05-19 13:41 | Outpatient (BNVA) | payer BC, SELFPAY | PROVIDERS: PCP Nurse Practitioner Family; Visit Provider Nurse Practitioner Family | DX: M81.0 Age-related osteoporosis without current pathological fracture (principal); E06.3 Autoimmune thyroiditis; E78.00 Pure hypercholesterolemia, unspecified; R12 Heartburn; R13.10 Dysphagia, unspecified | CPT/HCPCS: 98967 ==

== ENCOUNTER 2025-07-13 08:00 | Outpatient (AMB) | payer BC, SELFPAY ==
--- NOTE | 2025-07-13 08:02 | A.OFFVIS_ITS ---
Vital Signs 07/13/25 08:06 Height 5 ft 3.19 in Weight 153 lb 7.068 oz BMI 27.0 BP 110/72 Blood Pressure Location Rt brachial Position Sitting Pulse 66 Pulse Source Pulse Oximeter Pulse Oximetry (%) 96 Oxygen Delivery Method Room Air Intake Visit Reasons: Other osteoporosis without current pathological fr Intake Note: New patient internally referred by PCP for Osteoporosis, last DEXA was on 05/18/2025. Manager Investment Required: No Accompanied by: Self / Same As Patient Allergies levothyroxine sodium (LEVOTHYROXINE SODIUM) Allergy (Severe, Verified 07/13/25 08:07) RASH Penicillins (PENICILLINS) Allergy (Severe, Verified 07/13/25 08:07) HIVES, Rash any 'cillins' Allergy (Unknown, Uncoded 07/13/25 08:07) Rash Medication List - Last Reconciled 07/13/25 by Parviz Clayton MD bisacodyl 5 mg PO ONCE 1 day Levoxyl (levothyroxine) 75 mcg PO DAILY 90 days NS multivitamin 1 tab PO DAILY peg 3350-electrolytes 236-22.74-6.74 -5.86 gram 240 mL PO Q10M HPI Comments Details: 60 YO Female with PMHx hypothyroidism is seen in consultation at the request of PCP for Osteoporosis. She was seen in the past by myself for hypothyroidism First diagnosed in just diagnosed . Not Received treatment in the past No history of pathologic fracture or ONJ. Has several servings of dietary calcium per day in the form of cheese, eggs , broccoli , cereal . Takes Calcium supplement ? mg daily in divided doses. Takes ? IU of Vitamin D daily. Denies ever using PPI, anticoagulant, antiepileptic or glucocorticoid medication. Not Does weight bearing exercise Fracture history: L ankle 30 yrs ago after falling off ladder Height loss: Yes FIRE PREVENTION CHIEF history: Menarche at age 11- Menopause age 38 - nl menses Denies history of Kidney stones: Denies family history of Osteoporosis or hip fracture. UTD on dental cleanings and sees dentist every 6 months. No planned upcoming dental work or extractions. No tobacco use or heavy ETOH abuse DXA dated 05/19/25 :INDINGS: The bone mineral density of the lumbar spine is 0.742, corresponding to a T-score of -3.8, and a Z-score of -2.6. This is indicative of osteoporosis. The bone mineral density of the left total hip is 0.817, corresponding to a T-score of -1.5, and a Z-score of -0.6. This is indicative of osteopenia. The bone mineral density of the left femoral neck is 0.756, corresponding to a T-score of -2.0, and a Z-score of -0.8. This is indicative of osteopenia. FRACTURE RISK: The FRAX index suggests a risk of major osteoporotic fracture of 10.2%, and of hip fracture 1.4%. MM/XR DEXA axial skeleton IMPRESSION: Based on bone mineral density, and according to World Health Organization (WHO) criteria, the diagnosis is consistent with osteoporosis. Labs: [facility] Medical History (Updated 05/19/25 @ 15:12 by Chantale Dwyer, [facility]) Dysphagia Colon cancer screening COVID-19 Hypothyroidism (acquired) Surgical History History of colonoscopy (~2013) History of ganglion cyst History of dilation and curettage Family History Father Alzheimer disease Mother Alzheimer disease Brother No problems noted. Sister No problems noted. Sister Migraine Son No problems noted. Social History Housing: House Alcohol intake: never Patient Tobacco Use Status: Never used Tobacco e-Cigarette/Vaping Use: Never Used Second Hand Smoke Exposure: No service: No Current occupational exposures/hazards: No Cognitive needs: No Hearing needs: No Vision needs: No Physical Exam Vital Signs: Last Vital Signs Pulse 66 07/13/25 08:06 BP 110/72 07/13/25 08:06 Pulse Ox 96 07/13/25 08:06 Oxygen Delivery Method Room Air 07/13/25 08:06 BMI result Body Mass Index 27.0 There are no Cushingoid features. Absence of blue sclera. Absence of kyphosis. Thyroid gland is of nl size and weighs 15 gms. There are no thyroid nodules palpated. Lungs CTA. Heart S1 S2 Reg R/R Abdominal exam benign. Muscle strength 5/5 . Examination of spine reveals absence of tenderness on palpation Assessment & Plan Assessment & Plan (1) Osteoporosis: Onset Date: ~05/18/25 Comment: refer to dr clayton, as she saw him in the past eval and tx Code(s): M81.0 - Age-related osteoporosis without current pathological fracture Category: Medical Qualifiers: Osteoporosis type: other Presence of current pathological fracture: without current pathological fracture Qualified Code(s): M81.8 - Other osteoporosis without current pathological fracture Plan: 60-year-old white female with a history of osteoporosis with partial secondary workup Plan is to complete the secondary workup by checking a phosphorus level, urine immunofixation, 24 hour urine for calcium and creatinine. Will ensure 1200 mg of calcium and vitamin-D supplementation continued. Assuming secondary workup is negative, would strongly consider use of anabolic agent 1st like Evenity, Tymlos or Forteo to be proceeded by anti resorptive therapy considering the very low bone density and high risk for fracture Orders: Orders Phosphorus Today M81.8 - Other osteoporosis without current pathological fracture Immunofixation, Random Urine Today M81.8 - Other osteoporosis without current pathological fracture Creatinine, 24 Hr Group 2 Months M81.8 - Other osteoporosis without current pathological fracture Calcium, 24 Hr Ur 2 Months M81.8 - Other osteoporosis without current pathological fracture Coding Level of Care Code New Pt Level 4 (30256) Diagnoses Other osteoporosis without current pathological fracture M81.8 Osteoporosis type: other Presence of current pathological fracture: without current pathological fracture
[2025-07-13 08:06] VITALS: BP 110/72; PULSE 66; O2SAT 96; BMI 27.0
== END 2025-07-13 08:44 | disposition home or self-care (01) ==
LOC: HO.ENCR 08:01
PROVIDERS: PCP Nurse Practitioner Family; Visit Provider Internal Medicine Endocrinology, Diabetes & Metabolism
DX: M81.8 Other osteoporosis without current pathological fracture (principal)
CPT/HCPCS: 99204

== ENCOUNTER 2025-07-13 08:48 | Outpatient (REF) | payer BC, SELFPAY ==
--- OUTSIDE RECORDS SUMMARY | 2024-10-26 05:01 | XMS_ITS | Continuity of Care Document ---
Author Organization [facility] Address [facility] [place] [address] Phone Care Team Providers Care Aircraft Structural Fitter Name Role Phone Chantal DDS, Montoya Unavailable Unavailable Allergies, Adverse Reactions, Alerts Substance Reaction Status Criticality No Known Allergies Active No Inform ation Medications Medication Instructions Dosage Effective Dates (start - stop) Status Comments amlodipine 10 mg tablet take 1 tablet by oral route every day - Active zolpidem 10 mg tablet take 1 tablet by oral route every day at bedtime 10 MG - Active clonazepam 0.5 mg tablet take 1 tablet b y oral route 2 times every day 0.5 MG - Active hydrochlorothiazide 12.5 mg tablet take 1 tablet by oral route every day 12.5 MG - Active metoprolol tartrate 100 mg tablet take 1 tablet by oral route 2 times every day with meals 100 MG - Active hydrocodone 5 mg-acetaminophen 325 mg tablet take 1 tablet by oral route every 12 hours as needed for pain 1 tablet - Active enalapril maleate 20 mg tablet take 1 tablet by oral route every 2 days 20 MG - Active Problems Condition Type Effective Dates (start - stop) Clini aden Status Comments No Known Problems Advance Directives Directive Yes / No Effective Date File Name No Information Encounters Encounter Description Practice Location Reason(s) For Visit Diagnoses Date Provider [facility], [address] [place] [address], [id number], tel: [phone] [facility] No Information Marchen Montoya. [address] [place] [address], [id number], [place]. tel: [phone] [facility], [address] [place] [address], [id number], tel: [phone] [facility] Encounter for palliative care 4 Chantal Montoya. [address] [place], [place], [id number], . tel: [phone] [facility], [address], [place], [id number], tel:000 [facility] Necrosis of pulp 4 Chantal Montoya. [address] [place], [place], [id number], . tel: [phone] [facility], [address], [place], [place], [id number], tel:000 [facility] Encounter for screening for dental disorders 4 Chantal Montoya. [address] [place], [place], [id number], . tel: [phone] [facility], [address] [place], [place], [id number], tel:000 [facility] obesity (chief complaint) hypertensi on (chief complaint) BENIGN ESSENTIAL HYPERTENSIONObesityImpaire d fasting glucoseAnxietyKnee pain [address] [place], [facility], [place]. tel: [phone] Family History Family Member Type Diagnosis Age At Onset Mother Problem (finding) diabetes melli tus in first degree relative Mother Problem (finding) raised blood lipids Father Problem (finding) hypertension Mother Problem (finding) malignant neoplasm of t hyroid Mother Problem (finding) hypertension Payers Payer name Insurance type Covered constitution party ID Authoriza tion(s) D SELF PAY Category [id number] Social History Type Description Quantity Date Captured Comments Sex Female Smoking Status No Information Chief Complaint And Reason For Visit No Information Plan Of Treatment Date Type Action Status Goal Occult Blood, Fe aden, [place] (FIT). Due on due Goal FOBT (3 Cards Given). Due on due Goal Mammogram. Due on 4 due Goal Td vaccine. Due on due Goal Depression screening. Due on due Goal Tdap. Due on due Goal Cologuard. Due on due Goal Colonoscopy. Due on due Goal Flu Vaccine. Due on due Goal Occult Blood, Fe aden, [place] (FIT). Due on due Goal FOBT (3 Cards Given). Due on due Goal Mammogram. Due on due Goal Td vaccine. Due on due Goal Flu Vaccine. Due on due Goal Colonoscopy. Due on due Goal Cervical Cancer Screening. D ue on due Goal Cologuard. Due on due Goal Tdap. Due on due Goal Depression screening. Due on due Patient Education Tooth Extraction: Care Instructions completed Patient Education Tooth and Gum Pain: Car e Instructions completed History Of Present Illness Encounter Date Complaint History Of Prese nt Illness obesity Risk factors inc lude sedentary lifestyle. Associated conditions include hypertension and chronic pain. Aggravating factors include lack of exercise and poor mobility. Associated symptoms include anxiety, lethargy and paresthesias. Pertinent negatives include abdominal pain, acne, amenorrhea, cold intolerance, constipation, depression, fatigue or headache. Additional information: Has tried multiple different weight loss methods without improvement. Feels like obesity is contributing to high blood pressure, prediabetes, insomnia and anxiety. Patient plans to continue seeing PCP at [facility] for general care. hypertension Associated sympt oms include pain. Pertinent negatives include fatigue. BP has been difficult to control. Had recent labs done with PCP at [facility] and plans to continue following up with them for general care. Instructions Date Instruction Additional Infor mation No Information Assessments Type Assessment Date No Information
--- OUTSIDE RECORDS SUMMARY | 2025-07-13 09:34 | XMS_ITS | Patient Health Record ---
Author Organization [facility] Address [address] [address] Care Team Providers Care Bed Maker Name Role Phone Bon Natarajan MD Primary Care Provider Unavailabl e Black, Reanna Unavailable [phone] Allergies Allergen (clinical drug ingredient) Drug/Non Drug Allergy documented on EMR Reaction Allergy Type Onset Date Status amoxicillin Amoxicillin Unknown Drug Allergy Act yudy Penicillin Hives Drug Allergy Active Reason For Referral No Information Medications Medication SIG (Take, Route, Fr equency, Duration) Notes Start Date End Date Status Lamisil 250 250 MG 1 Tab Oral Daily; Du ration: 30 days 04/23/2014 Not-Taking Synthroid 88mcg Not- Taking Lamisil 250 250 MG 1 Tab Oral Daily; Du ration: 90 01/20/2014 Not-Taking Levoxyl 88 MCG 1 tablet Orally Once a day Active Problems Problem Type SNOMED Code ICD Code Onset Dates Problem Status W/U Status Risk Notes Problem Onychomycosis (995119208) Onychomycosis (110.1) Active confirmed Problem Pain in Limb (729.5) Active confirmed Problem Hammer toe (175920131) Hammer toe (735.4) Active confirmed Plan Of Treatment Pending Test Test Name Order Date *Liver Function Test (LFT) 01/14/2014 [id number] NAIL, 6 OR MORE 03/17/2014 [id number] NAIL, 6 OR MORE 01/14/2014 [id number] Plate 03/17/2014 Insurance Providers Payer Name Payer Address Payer Phone Subscriber Number Group Number Insured Name Patient Relationship to Insured Coverage Start Date Coverage End Date [facility] All Others [address] [place] [address] [id number] Oct, Self - patient is the insured Medical (General) History Medical History History ICD Code Hypothyroidism Onychomycosis Chicken pox Surgical History Surgery Date(Month/Year) colonoscopy
== END 2025-07-13 08:49 | disposition home or self-care (01) ==
LOC: HO.10HDL 08:48
PROVIDERS: Visit Provider Internal Medicine Endocrinology, Diabetes & Metabolism
DX: M81.8 Other osteoporosis without current pathological fracture (principal)
CPT/HCPCS: 84100; 86335

== ENCOUNTER 2025-08-13 09:50 | Outpatient (REF) | payer BC, SELFPAY ==
--- NOTE | ~2025-08-13 | FL_ITS ---
EXAMINATION: XR BARIUM SWALLOW CLINICAL INFORMATION: Dysphagia COMPARISON: None available. TECHNIQUE: Routine barium swallow was performed with thick barium, saltine crackers and barium tablet in upright view and thin barium in prone lying position. FINDINGS: Following oral administration of thick barium in upright view there is normal propagation bolus from the oral cavity through the pharynx, esophagus into stomach without obstruction, narrowing or stricture. No laryngeal penetration and aspiration seen. No retention of barium in the valleculae or piriform sinuses. Following oral administration of barium tablet there is normal antegrade flow from the oral cavity through the pharynx, esophagus into stomach without any evidence of obstruction or narrowing. On oral administration of thin barium in prone lying position there is good distention of esophagus without any intraluminal filling defect, narrowing or extrinsic compression. In supine view there is a moderate-sized hiatal hernia with mild gastroesophageal reflux. FLUOROSCOPY TIME: 2 minute 49 seconds DOSE AREA PRODUCT: 2018 uGy-m2 (microgray-meter squared) FL/FL barium swallow IMPRESSION: Moderate size hiatal hernia without reflux. Electronically signed by: William Olivas MD 08/13/2025 01:16 PM EDT
== END 2025-08-13 09:51 | disposition home or self-care (01) ==
LOC: HO.XRAY 09:50
PROVIDERS: PCP Nurse Practitioner Family; Visit Provider Nurse Practitioner Family
DX: R13.10 Dysphagia, unspecified (principal)
CPT/HCPCS: 74220

== ENCOUNTER → 2025-08-13 09:51 | Outpatient (BNV) | payer BC, SELFPAY | PROVIDERS: PCP Nurse Practitioner Family; Visit Provider Radiology Diagnostic Radiology | DX: R13.10 Dysphagia, unspecified (principal) | CPT/HCPCS: 74220 ==

== ENCOUNTER 2025-09-03 14:18 | Outpatient (AMB) | payer BC, SELFPAY ==
--- NOTE | 2025-09-03 14:22 | A.OFFPC_ITS ---
Intake Visit Reasons: add tele health visit todAY(admin time) Intake Note: Telehealth to follow up on covid. Patient went for a swallow test and hiatal hernia was dx. Bank Messenger Required: No Allergies levothyroxine sodium (LEVOTHYROXINE SODIUM) Allergy (Severe, Verified 09/03/25 14:32) RASH Penicillins (PENICILLINS) Allergy (Severe, Verified 09/03/25 14:32) HIVES, Rash any 'cillins' Allergy (Unknown, Uncoded 09/03/25 14:22) Rash Medication List - Last Reconciled 09/03/25 by Chantale Dwyer, [employer] bisacodyl 5 mg PO ONCE 1 day Levoxyl (levothyroxine) 75 mcg PO DAILY 90 days NS multivitamin 1 tab PO DAILY peg 3350-electrolytes 236-22.74-6.74 -5.86 gram 240 mL PO Q10M Tobacco use date assessed: 09/03/25 Dental Screening Dental Screen Date: 09/03/25 Did you have a dental visit in the last 12 months?: Yes Did you have a dental problem in the last 6 months where you did not have access to dental care?: No Was dental information given to patient?: Patient has dentist HPI HPI Comments History of Present Illness Details 60 y/o f with HLD, GERD, hypothyroid, ob esity, hiatal hernia Social: 3 children, Health Maintenance: colon 2013, repeat 10 years referred today Tdap 2018 Mammo declined DEXA 04/2025 Pap referred to [facility] Specialists: Optho Telehealth visit for COVID: Tested + at home yesterday Sx started last Saturday with RENO ff'd by vomiting GI sx lasted for 24 hours Was then able to tolerate liquids Saturday was able to get OOB and get out of the house by Sat/Sat. Feels generally weak Neck ache and sore throat started today upon waking; improved as the day went on. As soon as she feels she is getting better, sx seem to get worse Mild cough Runny nose and nasal congestion Used APAP Flu and cold for sx over the weekend; has used NSAID for headaches. But has not taken anything for a few days. At current time denies fever, trouble swallowing, chest pain, syncope. Offered Paxlovid. Wanted to review barium swallow +hiatal hernia noted. 03/2025 GI note reviewed Has questions about needing EGD Advised to fu with GI for all of this. Make sure she waits Thyroid - due for repeat labs. Made aware there are standing orders in there for her. She should stop in and get done. Toe nail fungus - wonders what she can do for tx Plan: Supportive care for Sx. Edu on reasons to seek additional care or fu. Refer to [facility] for toe nail fungus FU with GI for hiatal hernia and tx Get thyroid labs done Telehealth Attestation This consultation was conducted via telehealth with the patient, Candelaria, confirming her understanding of the discussed medical issues and treatment plans. The patient has been explained that this is an interactive (audio/video) telehealth encounter and what that consists of. The patient understands and wishes to proceed. NanoICE platform was used. Total time spent caring for the patient today was 32 minutes. This includes time spent before the visit reviewing the chart, time spent during the visit, and time spent after the visit on documentation, reviewing laboratory results, diagnostic imaging, medications, performing a medically necessary evaluation, counseling on diagnoses, care coordination, ordering appropriate tests, ordering appropriate medications, review of tests performed by other providers, reporting test results with the patient, communication with other healthcare providers. REPLACED BY [facility] Medical History (Updated 09/03/25 @ 14:31 by Chantale Dwyer, [facility]) Colon cancer screening COVID-19 Dysphagia Hypothyroidism (acquired) Surgical History History of colonoscopy (~2013) History of ganglion cyst History of dilation and curettage Family History Father Alzheimer disease Mother Alzheimer disease Brother No problems noted. Sister No problems noted. Sister Migraine Son No problems noted. Social History Housing: House Alcohol intake: never Patient Tobacco Use Status: Never used Tobacco e-Cigarette/Vaping Use: Never Used Second Hand Smoke Exposure: No service: No Current occupational status: retired Current occupational exposures/hazards: No Cognitive needs: No Hearing needs: No Vision needs: No Questionnaire Thrive Questionnaire Date Thrive assessed: 02/19/25 I am a: Patient What is your living situation today?: I have a steady place to live Within the past 12 months, did the food you bought not last and you didn't have the money to get more?: Never true Within the past 12 months, did you worry whether your food would run out before you got money to buy more?: Never true Do you have trouble paying for medicines?: No Do you have trouble getting transportation to medical appointments?: No Do you have trouble paying your heating and electricity bill?: No Do you have trouble taking care of your child, family member or friend?: No Do you have trouble with day-to-day activities such as bathing, preparing meals, shopping, managing finances, etc.?: No Are you currently unemployed and looking for a job?: No Are you interested in more education?: No Please select the resources that you would like help with: None Currently or been in a relationship where the following occur: No concerns reported THRIVE Score: 0 AUDIT C Alcohol Use Questionnaire (AUDIT-C) 3. How often do you have six or more drinks on one occasion?: Never Total Score: 0 ELIOT-7 AMB Questionnaire ELIOT-7 Date ELIOT - 7 assessed: 02/19/25 Source: Developed by Drs. Parviz Feliz, Aviva Capone, Mahendra Garcia and colleagues, with an educational magi from [email or web address]. Physical exam (Primary Care) Tobacco/Smoking Status: Tobacco use Status Tobacco use date assessed 09/03/25 09/03/25 14:26 Patient Tobacco Use Status Never used Tobacco 09/03/25 14:26 e-Cigarette/Vaping Use Never Used 09/03/25 14:26 Thrive Assessment: Date of Thrive Assessment Date Thrive assessed 02/19/25 09/03/25 14:26 Currently or been in a relationship where the following occur: No concerns reported Telehealth Telehealth Telehealth Platform: [facility] Location of provider rendering services: practice address Location of patient: address on file Patient Identification confirmed using: Name, : Yes Telehealth method: voice only Patient verbally consented to treatment: Yes Patient verbally consented to billing insurance company: Yes Patient informed of any privacy concerns related to visit: Yes Minutes spent on Phone/Video with Pt.: 22 Coding Level of Care Code Tele Est Pt Level 4 (41037) Complex EM visit Add On G2211 Diagnoses Hiatal hernia K44.9 COVID-19 U07.1 Onychomycosis B35.1 Hypothyroidism (acquired) E03.9 Assessment & Plan Assessment & Plan (1) Hiatal hernia: Comment: barium swallow 07/2025 Moderate size hiatal hernia without reflux. Code(s): K44.9 - Diaphragmatic hernia without obstruction or gangrene Category: Medical (2) COVID-19: Code(s): U07.1 - COVID-19 (3) Onychomycosis: Code(s): B35.1 - Tinea unguium Category: Medical (4) Hypothyroidism (acquired): Code(s): E03.9 - Hypothyroidism, unspecified Category: Medical Plan . Orders: Referrals Dermatology Referral B35.1 - Tinea unguium
== END 2025-09-03 15:03 | disposition home or self-care (01) ==
LOC: HO.HMCFM 14:19
PROVIDERS: PCP Nurse Practitioner Family; Visit Provider Nurse Practitioner Family
DX: K44.9 Diaphragmatic hernia without obstruction or gangrene (principal); U07.1 COVID-19; B35.1 Tinea unguium; E03.9 Hypothyroidism, unspecified

== ENCOUNTER 2025-10-26 10:36 | Outpatient (REF) | payer BC, SELFPAY ==
[2025-10-27 11:29] LABS: Creatinine, mg/dL 132.30
[2025-10-27 12:30] LABS: Total Volume 24 Hour Urine 725 mL
[2025-10-29 17:53] LABS: Calcium/Creatinine Ratio 193 mg/g creat (30-275); Creatinine 24Hr Urine 0.94 g/24 h (0.50-2.15)
== END 2025-10-26 10:37 | disposition home or self-care (01) ==
LOC: HO.LNP 10:36
PROVIDERS: Visit Provider Internal Medicine Endocrinology, Diabetes & Metabolism
DX: M81.8 Other osteoporosis without current pathological fracture (principal)
CPT/HCPCS: 82340; 82570

== ENCOUNTER 2025-10-27 08:23 | Outpatient (REF) | payer BC, SELFPAY ==
[2025-10-27 11:52] LABS: Free T4 (Free Thyroxine) 0.93 ng/dL (0.71-1.85)
== END 2025-10-27 08:24 | disposition home or self-care (01) ==
LOC: HO.10HDL 08:23
PROVIDERS: Visit Provider Nurse Practitioner Family
DX: E03.9 Hypothyroidism, unspecified (principal)
CPT/HCPCS: 36415; 84439; 84443

== ENCOUNTER 2025-11-09 07:50 | Outpatient (AMB) | payer BC, SELFPAY ==
--- OUTSIDE RECORDS SUMMARY | 2025-11-09 07:58 | XMS_ITS | Patient Health Record ---
Author Organization [facility] Address [address] [place] [address] Care Team Providers Care Electrolysis Needle Operator Name Role Phone Bon Natarajan MD Primary Care Provider Unavailabl e Black, Reanna Unavailable [phone] Allergies Allergen (clinical drug ingredient) Drug/Non Drug [...] Status W/U Status Risk Notes Problem Onychomycosis (307924423) Onychomycosis (110.1) Active confirmed Problem Pain in limb (51776958) Pain in Limb (729.5) Active confirmed Problem Hammer toe (784449074) Hammer toe (735.4) Active confirmed Plan Of Treatment Pending Test Test Name Order Date *Liver Function Test (LFT) 01/14/2014 [id number] NAIL, 6 OR MORE 03/17/2014 [id number] NAIL, 6 OR MORE 01/14/2014 [id number] Plate 03/17/2014 Insurance Providers Payer Name Payer Address Payer Phone Subscriber Number Group Number Insured Name Patient Relationship to Insured Coverage Start Date Coverage End Date [employer] [address] [place] [address] [id number] Oct, Self - patient is the insured Medical (General) History Medical History History ICD Code Hypothyroidism Onychomycosis Chicken pox Surgical History Surgery Date(Month/Year) colonoscopy
--- NOTE | 2025-11-09 08:05 | MHC.OFFVIS ---
Vital Signs 11/09/25 08:08 Height 5 ft 3.27 in Weight 156 lb 4.924 oz BMI 27.4 BP 116/74 Blood Pressure Location Rt brachial Position Sitting Pulse 67 Pulse Source Pulse Oximeter Pulse Oximetry (%) 96 Oxygen Delivery Method Room Air Intake Visit Reasons: f/u osteoporosis Intake Note: Patient present today for Osteoporosis follow up. Food Service Lead Required: No Accompanied by: Daughter Allergies levothyroxine sodium (LEVOTHYROXINE SODIUM) Allergy (Severe, Verified 09/03/25 14:32) RASH Penicillins (PENICILLINS) Allergy (Severe, Verified 09/03/25 14:32) HIVES, Rash any 'cillins' Allergy (Unknown, Uncoded 09/03/25 14:22) Rash Medication List - Last Reconciled 11/09/25 by Praviz Clayton MD bisacodyl 5 mg PO ONCE 1 day Levoxyl (levothyroxine) 88 mcg PO DAILY NS multivitamin 1 tab PO DAILY peg 3350-electrolytes 236-22.74-6.74 -5.86 gram 240 mL PO Q10M HPI Comments Details: History of Present Illness The patient is a 60 year old female presenting for follow-up to discuss treatment for severe osteoporosis. A bone density scan revealed a T-score of -3.8 in her spine. A secondary osteoporosis workup, including a 24-hour urine for calcium, phosphorus level, and a screen for multiple myeloma, was normal. Her medical history is notable for an ankle fracture 30 years ago, but she has no other history of fractures. She does not report a family history of broken bones. She has no history of irradiation to the bones for cancer or a heart attack within the last two years. The patient has a history of hypothyroidism, managed by her primary care provider. Her TSH level was recently elevated, and her levothyroxine dose was increased from 77 mcg to 88 mcg. She also has a known hiatal hernia. Her vitamin D level is good, and she consumes a total of 1200 mg of calcium daily through a combination of diet and calcium citrate supplements. She reports being clumsy and experienced a fall off a ladder in a bathtub about a year and a half ago without sustaining a fracture. Medication History - Prior levothyroxine dose of 100 mcg, later reduced to 77 mcg, on which she reported feeling low energy. Medications - Thyroid medication since age 38, with recent dose adjustment to 88 mcg. - Calcium supplements (calcium citrate), taken to reach a total of 1200 mg daily from diet and supplements. - Vitamin D supplements, dose not specified but patient is told to continue current regimen as her level is good. Exercise The patient is encouraged to perform weight-bearing exercises and was informed about the availability of Better Bones and Balance classes, possibly at the [facility]. She recently lifted an 85-pound shelf into her car. Diet History The patient's daily calcium intake is 1200 mg, achieved through a combination of diet and calcium citrate supplements. Results - Bone Density Scan: Lowest T-score was -3.8 in the spine. - Labs: Secondary workup for osteoporosis was normal, including 24-hour urine calcium and phosphorus. - A recent TSH level was noted to be elevated. - Vitamin D level is good. [facility], LAT[facility] Medical History (Updated 09/03/25 @ 14:31 by Chantale Dwyer, [facility]) Dysphagia Colon cancer screening COVID-19 Hypothyroidism (acquired) Surgical History History of colonoscopy (~2013) History of ganglion cyst History of dilation and curettage Family History Father Alzheimer disease Mother Alzheimer disease Brother No problems noted. Sister No problems noted. Sister Migraine Son No problems noted. Social History Housing: House Alcohol intake: never Patient Tobacco Use Status: Never used Tobacco e-Cigarette/Vaping Use: Never Used Second Hand Smoke Exposure: No service: No Current occupational status: retired Current occupational exposures/hazards: No Cognitive needs: No Hearing needs: No Vision needs: No Review of Systems Narrative Review of Systems - General: Reports feeling a lack of energy on a lower dose of thyroid medication. - Musculoskeletal: Denies pain related to osteoporosis. - Neurological: Reports a history of clumsiness. - Gastrointestinal: Reports having a hiatal hernia. Physical Exam Exam Exam: Physical Exam Absence of Cushingoid features. Absence of acromegalic features. Neck exam reveals nl size thyroid about 15 gms. No thyroid nodules palpable. Heart S1 S2, Reg R/R. No M/R G. Skin exam reveals absence of vitiligo or acanthosis nigricans. Visual exam of foot performed. No ulcerations or open lesions. No inter digit maceration or fissuring. No onychomycosis, no callouses. Sensation intact to monofilament exam. Vibratory sensation is normal with 128 Hz tuning fork. Vital Signs: Last Vital Signs Pulse 67 11/09/25 08:08 BP 116/74 11/09/25 08:08 Pulse Ox 96 11/09/25 08:08 Oxygen Delivery Method Room Air 11/09/25 08:08 BMI result Body Mass Index 27.4 Assessment & Plan Assessment & Plan (1) Osteoporosis: Onset Date: ~05/18/25 Comment: refer to dr clayton, as she saw him in the past eval and tx Code(s): M81.0 - Age-related osteoporosis without current pathological fracture Category: Medical Qualifiers: Osteoporosis type: other Presence of current pathological fracture: without current pathological fracture Qualified Code(s): M81.8 - Other osteoporosis without current pathological fracture Plan Assessment and Plan 1. Severe Osteoporosis The patient is a 60-year-old female with a very low T-score of -3.8 in the spine, placing her in the very high-risk category for fracture. Secondary causes have been ruled out. Given her age and the severity of her low bone density, an anabolic agent is the recommended first-line therapy to build bone mass, followed by an antiresorptive agent to maintain the gains. We discussed Forteo, Tymlos, and Evenity. The patient agreed to proceed with a course of Evenity (romosozumab), which consists of monthly injections for one year. A prescription for Evenity will be sent to the specialty pharmacy, and the office nurse will manage the insurance prior authorization process and communicate with the patient regarding coverage and co-pays. If not covered under prescription benefits, we will attempt to obtain it through medical benefits via the [facility]. The patient was counseled extensively on fall prevention, including maintaining a clear home environment and being cautious with her dogs. Will continue calcium 1200 mg and vitamin D supplementation. She is also encouraged to pursue weight-bearing exercises and was provided information on a Better Bones and Balance class. Plan to repeat bone density scan in two years. 2. Hypothyroidism The patient's hypothyroidism is managed by her PCP. Her dose was recently increased from 77 mcg to 88 mcg for an elevated TSH. No changes will be made to her regimen at this time; she will continue to follow up with her PCP for management. 3. Follow-up Plan to follow up in the office in 4 months. The patient had an opportunity to ask questions regarding treatment plan. The patient expressed understanding and agreement with the above treatment plan. Patient was informed and verbally consented to the use of an ambient scribe for clinic note documentation during this visit. Discussion Notes I reviewed the patient's recent workup, confirming that her secondary workup for osteoporosis was normal. We discussed her diagnosis of severe osteoporosis, highlighted by a T-score of -3.8 in her spine, which places her at a very high risk for future fractures. I explained the mechanisms of anabolic therapies (which build bone) versus antiresorptive therapies (which stabilize bone). Given her young age and the severity of her condition, I recommended a treatment sequence starting with an anabolic agent, as this approach is most effective for building significant bone density. We reviewed the options for anabolic therapy, including Forteo, Tymlos, and Evenity. I recommended Evenity as the most potent option, capable of significantly improving bone density within a year. The patient and her daughter were engaged in the discussion and agreed to proceed with Evenity. I detailed the insurance approval process, including potential challenges like non-formulary status, high co-pays, and the alternative of seeking coverage through medical benefits via an infusion center. I emphasized that this is not an emergency but a preventative measure. We also thoroughly discussed the critical importance of fall prevention strategies, especially given her self-reported clumsiness and her dogs. The patient was encouraged to continue weight-bearing exercise and provided with educational websites for further information. I scheduled a follow-up appointment in 4 months, by which time we hope to have initiated therapy. Patient Instructions - You have severe osteoporosis, meaning your bones are thin and at high risk of breaking. - We have decided to start a medication called Evenity to build up your bone strength. This involves an injection in our office once a month for one year. - Our office will send the prescription to your insurance company. A nurse will call you to discuss the insurance decision and the next steps. - Continue taking your calcium and vitamin D supplements as you are currently doing. - It is very important to prevent falls. Be careful on stairs, keep your home free of clutter, and be aware of your dogs so you do not trip over them. - Continue with weight-bearing exercises like walking. You may also want to look into a Better Bones and Balance class at a local gym like the [facility]. - You can learn more about your condition at the following websites: [employer]com, hormone.org, and bonehealthandosteoporosis.org. - Follow up in this office in 4 months. Medications: New Evenity (romosozumab-aqqg) 210 mg (2.34 mL) subcut QMONTH 2.34 mL 11RF 12 months NS Coding Level of Care Code Est Pt Level 3 (46285) Diagnoses Other osteoporosis without current pathological fracture M81.8 Osteoporosis type: other Presence of current pathological fracture: without current pathological fracture
[2025-11-09 08:08] VITALS: BP 116/74; PULSE 67; O2SAT 96; BMI 27.4
== END 2025-11-09 08:42 | disposition home or self-care (01) ==
LOC: HO.ENCR 07:50
PROVIDERS: PCP Nurse Practitioner Family; Visit Provider Internal Medicine Endocrinology, Diabetes & Metabolism
DX: M81.8 Other osteoporosis without current pathological fracture (principal)
CPT/HCPCS: 99213